=== PATIENT | female | born 1960 | race Caucasian/White ===

== ENCOUNTER → 2024-10-29 01:47 | Emergency (ER) | payer OTHER, SELFPAY ==
[2024-10-29 01:49] VITALS: BP 160/96
[2024-10-29 02:26] VITALS: BMI 28.9
[2024-10-29 02:27] VITALS: BP 126/73
[2024-10-29 03:30] VITALS: BP 124/65
[2024-10-29] MEDS: TORADOL 15 MG IM (03:49)
[2024-10-29 04:30] VITALS: BP 122/62
[2024-10-29] MEDS: DELTASONE 50 MG PO (04:34)
[2024-10-29 05:38] VITALS: BP 121/62
--- NOTE | 2024-10-29 05:45 | ED.GENMED ---
History of Present Illness
<LISANDRO Morin - Last Filed: 10/29/24 05:51>
General
Chief Complaint: Back Pain
Source: patient
Exam Limitations: clinical condition
Time Seen by Provider: 10/29/24 05:35
History of Present Illness
History of Present Illness:
Pt is a 64 yo F with a PMH of GERD and HTN who presents to the ED c/o right low back pain shooting into her right leg x 10 hours. She explains she was out with her and daughter for mother's day and felt as though she had been sitting too
long, having some mild discomfort in her low back. When she stood, the pain shot down her right leg to her ankle and the pain has remained excruciating since. Patient states that right now the pain is a 7/10, but for the most part it has been a
10/10. She admits to previous episodes of sciatica, most recently in 2018, and explains that this feels like her prior episodes. She denies N/V. RENO, abdominal pain, or trauma.
Past History
<LISANDRO Morin - Last Filed: 10/29/24 05:51>
Past History
ED Past Medical History: GERD and HTN
Review of Systems
<LISANDRO Morin - Last Filed: 10/29/24 05:51>
Review of Systems
All Other Systems: ROS reviewed and negative except as documented in HPI and ROS
Phy Exam
<LISANDRO Morin - Last Filed: 10/29/24 05:51>
General Physical Exam
General Presentation: moderate distress and mild distress
General age: appears stated age
General Skin: warm
General Habitus: normal
General Mental: alert
General Hydration: appears well hydrated
Cardiovascular Exam
Cardiovascular Exam: regular rate/rhythm
Pulmonary Exam
Pulmonary Exam: lungs clear
Musculoskeletal Exam
Musculoskeletal Exam: back pain, back tenderness and other (+ Straight leg raise - cross straight leg raise)
Course
<ST PatiencePA - Last Filed: 10/29/24 05:51>
Orders/Labs/Results
Orders:
Orders
10/29/24 03:46
Ketorolac [Toradol] 15 mg IM NOW STA
10/29/24 04:32
Prednisone [Deltasone] 50 mg PO NOW STA
10/29/24 05:57
Ketorolac [Toradol] 15 mg IV NOW STA
diazePAM [Valium Injection] 5 mg IV NOW STA
Vital Signs
Initial and Last Documented VS:
Initial Vital Signs
Temp Pulse Resp BP Pulse Ox
97.8 F 72 24 160/96 100
10/29/24 01:49 10/29/24 01:49 10/29/24 01:49 10/29/24 01:49 10/29/24 01:49
Last Documented Vital Signs
Temp Pulse Resp BP Pulse Ox
97.8 F 64 20 121/62 99
10/29/24 01:49 10/29/24 05:38 10/29/24 05:38 10/29/24 05:38 10/29/24 05:38
<Mily Rai DO - Last Filed: 10/29/24 07:14>
Orders/Labs/Results
Orders:
Orders
10/29/24 03:46
Ketorolac [Toradol] 15 mg IM NOW STA
10/29/24 04:32
Prednisone [Deltasone] 50 mg PO NOW STA
10/29/24 05:57
Ketorolac [Toradol] 15 mg IV NOW STA
diazePAM [Valium Injection] 5 mg IV NOW STA
Vital Signs
Initial and Last Documented VS:
Initial Vital Signs
Temp Pulse Resp BP Pulse Ox
97.8 F 72 24 160/96 100
10/29/24 01:49 10/29/24 01:49 10/29/24 01:49 10/29/24 01:49 10/29/24 01:49
Last Documented Vital Signs
Temp Pulse Resp BP Pulse Ox
97.8 F 64 20 121/62 99
10/29/24 01:49 10/29/24 05:38 10/29/24 05:38 10/29/24 05:38 10/29/24 05:38
<LISANDRO Morin - Last Filed: 10/29/24 05:51>
*Critical Care Note
Total Time (30-74mins, 75-104mins- exclusive of procedures): Not Applicable
<Mily Rai DO - Last Filed: 10/29/24 07:14>
*Pulse Oximetry
Patient hypoxic: no
ED Attending Note
<LISANDRO Morin - Last Filed: 10/29/24 05:51>
-
Portions of this chart may have been created with voice recognition software.� Occasional wrong word or��sound alike� substitutions may have occurred due to the inherent limitations of voice recognition software.
<Mily Rai DO - Last Filed: 10/29/24 07:14>
ED Attending Note
Patient seen and examined by attending physician: Yes
I performed the substantive portion of visit, reviewed & personally made and approve the management plan that is documented in note by myself or ANISH.: Yes
ED Attending Note:
This is a 64-year-old woman with history of hypertension, GERD as well as history of lumbar disc disease with sciatica. History of prior lumbar epidural steroid injections 2018 with resolution of sciatica at that time.
She presents with right low back pain that radiates to her right lateral hip down her right posterior lateral leg that began yesterday. No insightful injury but pain is very similar to previous episodes of sciatica. She denies weakness or
numbness, no saddle anesthesia, no difficulty moving her bowels or bladder. She denies fall, denies fever nor chills. She has not had a rash.
64-year-old woman appears her stated age, awake and alert, appears mildly to moderately uncomfortable. Lying preferentially on her left side, rubbing her left lateral hip.
Thus far notes no significant improvement after an IM dose of Toradol 15 mg, oral dose of prednisone.
Exam remarkable for mild tenderness right paralumbar region. No midline vertebral tenderness. Mild tenderness to the right lateral hip without soft tissue swelling nor erythema. Full range of motion of right lower extremity with mildly positive
straight leg raising on the right. Peripheral pulses are full and equal. Sensation and strength intact.
History and exam most consistent with exacerbation of lumbar disc disease with right lower extremity sciatica.
Will give additional IV dose of Toradol along with an IV dose of Valium. Will consider IV narcotics if moderate pain persists.
As patient reports no fall nor injury, at this point no indication for imaging.
No red flags in history nor exam, nothing to suggest acute cord compression, neurologic deficit nor infectious process.
07:05
Patient sleeping upon reevaluation. Awakens easily.
Reports moderate improvement in pain. Resting comfortably.
Will discharge to home with prescription for tapering dose of prednisone, A small prescription for Vicodin for as needed pain as well as Flexeril for bedtime use.
Recommend rest, local heat and prompt follow-up with PCP for recheck.
Discharge Plan
Departure
Patient Disposition: Home (Routine Discharge)
Date of Disposition: 10/29/24
Time of Disposition: 07:11
Patient with high blood pressure during this ER visit?: No
Condition: Good
Discharge Problem:
Acute low back pain with right-sided sciatica
Instructions: Low Back Pain (DC), Sciatica (DC)
Prescriptions:
New
cyclobenzaprine 10 mg tablet
10 mg PO HS Qty: 15 0RF
prednisone 10 mg Tablet
See Rx Instructions .ROUTE .COMPLEX Qty: 30 0RF
Rx Instructions:
Take By Mouth:
40 mg daily x3 days, 30 mg daily x3 days,
20 mg daily x3 days, 10 mg daily x3 days.
hydrocodone-acetaminophen 5-300 mg tablet
1 tab PO Q8H PRN (Reason: Pain) Qty: 10 0RF
No Action
metoprolol succinate 50 mg Tablet Extended Release 24 Hr
50 mg PO DAILY
omeprazole 20 mg Tablet,Delayed Release (Dr/Ec)
20 mg PO DAILY
Referrals:
Wong Chavez DO [Family Provider] - Call in 1-3 days for appt
Interventions
Interventions:
*Risk Screen - Suicide Last Done: 10/29/24 01:49
*General Assessment Last Done: 10/29/24 02:27
*Neglect/Abuse Screening Last Done: 10/29/24 01:49
*ED- Fall Risk Assessment Last Done: 10/29/24 02:27
*ED COVID-19 Vaccine History Last Done: 10/29/24 02:27
ED-Musculoskeletal Assessment Last Done: 10/29/24 02:39
Discharge Date and Time
Print Language: MONGOLIAN
[2024-10-29] MEDS: VALIUM INJECTION 5 MG IV (06:06)
[2024-10-29] MEDS: TORADOL 15 MG IV (06:07)
== END | disposition home or self-care (01) ==
LOC: EMR 01:47
PROVIDERS: EMERGENCY PHYSICIAN Emergency Medicine; FAMILY PHYSICIAN Family Medicine
DX: M54.41 Lumbago with sciatica, right side (principal); K21.9 Gastro-esophageal reflux disease without esophagitis; I10 Essential (primary) hypertension
CPT/HCPCS: 99282; 96374; 96375; 96372